=== PATIENT | male | born 1985 | race Caucasian/White ===

== ENCOUNTER 2016-10-10 09:37 | Emergency (ER) | payer SELFPAY ==
[~2016-10-10] VITALS: Ht 180.3 cm; Wt 66.5 kg
[2016-10-10 09:48] VITALS: Ht 180.3 cm; Wt 66.5 kg
[2016-10-10] MEDS ORDERED: TETRACAINE 0.5% 4 ML OPH RIGHT EYE SCH (10:30)
[2016-10-10] MEDS ORDERED: FLUORESCEIN STRIP RIGHT EYE ONE (10:30)
--- NOTE | 2016-10-10 10:42 | RADRPT ---
PROCEDURE: XR Chest. CLINICAL INDICATION: Cough TECHNIQUE: Chest AP portable. COMPARISON: No comparison available. FINDINGS: The mediastinal structures are unremarkable. The heart is normal in size and configuration. The pu lmonary vascularity is normal. The lung alvarenga are unremarkable. No consolidation is identified. The pleural spaces are unremarkable. The axial skeleton is unremarkable. IMPRESSION: No active intrathoracic disease. RPTAT: HGDB .Hima aC MD, MD Date Time Electronically viewed and signed by .Hima Ca MD, on 10/10/2016 10:42 .B/
--- NOTE | 2016-10-10 10:46 | ERD ---
ER Documentation Chief Complaint Date/Time DATE: 10/10/16 TIME: 10:40 Chief Complaint Cough x 1week HPI This is a 31-year-old male with no significant past medical history who presents with cough for 1 week. Patient has yellow and green phlegm production with the cough and has taken cough syrup with minimal relief. Also complains of runny nose. He feels the cough is getting worse and keeping him up at night. Denies dizziness, neck pain or stiffness. The patient also has right eye redness that has been constant for the past 3 days. Complains of itchiness and clear watery drainage. Denies a sensation of foreign body. Denies previous history of asthma or allergies. Denies chills, fever, headache, abdominal pain, chest pain, shortness of breath, difficulty breathing vomiting and diarrhea. Denies leg pain, leg swelling. Denies recent surgeries, recent travel. ROS All systems reviewed and are negative except as per history of present illness. Medications Home Meds Active Scripts Polymyxin B Sulfate-TMP* (Polymyxin B-TMP Eye Drops*) 10 Ml Drops, 1 DROP LEFT EYE QID for 7 Days, EA Prov:SAAD PIERCE PA-C 10/10/16 Benzonatate* (Tessalon Perle*) 100 Mg Capsule, 100 MG PO Q8H Y for COUGH for 14 Days, CAP Prov:SAAD PIERCE PA-C 10/10/16 Azithromycin* (Zithromax*) 250 Mg Tablet, 250 MG PO .ZPACK DIRECTED, #6 TAB TAKE 500 MG (2 TABS) THE FIRST DAY THEN 250 MG (1 TAB) DAYS 2-5 Prov:SAAD PIERCE PA-C 10/10/16 Cetirizine Hcl* (Zyrtec*) 10 Mg Capsule, 10 MG PO DAILY, #30 TAB.CHEW Prov:SAAD PIERCE PA-C 10/10/16 Allergies Allergies: Coded Allergies: No Known Allergy (Unverified , 10/10/16) PMhx/Soc Medical and Surgical Hx: pt denies Medical Hx, pt denies Surgical Hx History of Surgery: No Anesthesia Reaction: No Hx Neurological Disorder: No Hx Respiratory Disorders: No Hx Cardiac Disorders: No Hx Psychiatric Problems: No Hx Miscellaneous Medical Probl: No Hx Alcohol Use: No Hx Substance Use: No Hx Tobacco Use: No Smoking Status: Never smoker FmHx Family History: No coronary disease, No diabetes, No other Physical Exam Vitals Vital Signs Date Time Temp Pulse Resp B/P Pulse Ox O2 Delivery O2 Flow Rate FiO2 10/10/16 09:48 98.1 83 20 121/68 98 Physical Exam GENERAL: Well-developed, well-nourished male. Appears in no acute distress. HEAD: Normocephalic, atraumatic. EYES: Pupils are equally reactive bilaterally. EOMs grossly intact. No conjunctival erythema. ENT: Moist mucous membranes. No uvula deviation. No kissing tonsils. No exudates. NECK: Supple. No lymphadenopathy or thyromegaly. No meningismus. negative kernig. negative brudinski. LUNG: Clear to auscultation bilaterally. No rhonchi, wheezing, rales or coarse breath sounds. HEART: Regular rate and rhythm. No murmurs, rubs or gallops. Extremities: Equal pulses bilaterally. No peripheral clubbing, cyanosis or edema. No unilateral leg swelling. Negative Homans sign NEUROLOGIC: Alert and oriented. Moving all four extremities. 5/5 strength in all extremities. Normal speech. Steady gait. SKIN: Normal color. Warm and dry. No rashes or lesions. Capillary refill < 2 seconds Results 24 hrs Current Medications Medications (Trade) Dose Ordered Sig/Daniel Route PRN Reason Start Time Stop Time Status Last Admin Dose Admin Tetracaine HCl (Tetracaine 0.5% Steri-Unit Paloma) 1 drop ONCE RIGHT EYE 10/10/16 10:30 10/10/16 11:14 DC Fluorescein Sodium (Hkhhm-W-Buvhz) 1 strip ONCE ONCE RIGHT EYE 10/10/16 10:30 10/10/16 10:31 DC Procedures/MDM ER COURSE: I kept the patient informed of diagnostic imaging results throughout the emergency room course. DIAGNOSTIC IMAGING: [place] [id number] Radiology Main Line: [phone] DIAGNOSTIC IMAGING REPORT Patient: JOSHUA WYATT : 1985 Age: 31 Sex: M MR #: [id number] DOS: 10/10/16 1023 Ordering MD: SAAD PIERCE PA-C Location: [facility] Room/Bed: PROCEDURE: XR Chest. CLINICAL INDICATION: Cough TECHNIQUE: Chest AP portable. COMPARISON: No comparison available. FINDINGS: The mediastinal structures are unremarkable. The heart is normal in size and configuration. The pulmonary vascularity is normal. The lung alvarenga are unremarkable. No consolidation is identified. The pleural spaces are unremarkable. The axial skeleton is unremarkable. IMPRESSION: No active intrathoracic disease. RPTAT: HGDB .Hima Ca MD, MD Date Time Electronically viewed and signed by .Hima Ca MD, MD on 10/10/2016 10:42 .B/ CC: SAAD PIERCE PA-C PROCEDURES: Fluoroscene seen eye exam using the Rosas lamp. Visual acuity MEDICAL DECISION MAKING: This is a 31-year-old male who presents with cough for 1 week and right eye irritation for 3 days.Vital signs were reviewed. Patient is afebrile. Patient is not hypoxic. Patient is not toxic or ill-appearing. His x-rays of by radiologist is unremarkable. Patient has cough of viral versus bacterial etiology. Low suspicion for pneumonia, PE, pneumothorax, ACS, epiglottitis, obstruction, TB, pertussis, meningitis, sepsis. Patient also has what is likely conjunctivitis. Examination with rosas lamp revealed No evidence of fluorescein uptake, corneal abrasions, ulcers, dendritic lesions, foreign body, or Trinity signs. Low suspicion for acute angle closure glaucoma, retinal detachment, arterial occlusion, hemorrhage, fracture, foreign body, ruptured globe, orbital cellulitis. DISCHARGE: At this time, patient is stable for discharge and outpatient management with no new complaints during the ER course. Patient was sent home with Polytrim, Tessalon Perles, azithromycin and Zyrtec. I also advised patient to follow-up with an retirement actuary as his left eye was 20/100. Patient stated he had not received an eye exam in over a year. Patient will be discharged home with instructions to recheck for new or worsening symptoms such as fever, nausea, weakness, LOC and to follow up with primary care in the next 1-2 days. Patient was advised to return to the ER for any new or worsening symptoms. Plan was discussed and patient and/or family understands and agrees. Home instructions were given. Departure Diagnosis: Primary Impression: Cough Additional Impression: Conjunctivitis Conjunctivitis type: acute Acute conjunctivitis type: unspecified Laterality: right Qualified Code: H10.31 - Acute conjunctivitis of right eye , unspecified acute conjunctivitis type Condition: Stable SAAD PIERCE PA-C Oct 10, 2016 10:46
[2016-10-10] MEDS ORDERED: BENZ100C70 PO (10:54)
[2016-10-10] MEDS ORDERED: CETI10CA PO (10:54)
[2016-10-10] MEDS ORDERED: AZIT250T94 PO (10:54)
[2016-10-10] MEDS ORDERED: POLY10DR19 LEFT EYE (10:55)
== END 2016-10-10 11:02 | disposition home or self-care (01) ==
LOC: FTE 09:37
DX: R05 Cough (principal); H10.31 Unspecified acute conjunctivitis, right eye
CPT/HCPCS: 71010